=== PATIENT | female | born 1970 | race Asian ===

== ENCOUNTER 2023-01-21 12:38 | Emergency (ER) | payer OTHER ==
[~2023-01-21] VITALS: Ht 157.5 cm; Wt 64.4 kg
[2023-01-21 12:44] VITALS: BP 160/100
[2023-01-21 14:43] LABS: BASOPHILS % (AUTO) 0.8 % (0.0-2.0); EOSINOPHILS % (AUTO) 0.2 % (0.0-4.0); HEMATOCRIT 44.9 % (36-48); HEMOGLOBIN 15.2 g/dL (12.0-16.0); LYMPHOCYTES # (AUTO) 1.3 K/uL (2.5-16.5); LYMPHOCYTES % (AUTO) 22.8 % (20.5-51.1); MEAN CORPUSCULAR HEMOGLOBIN 29 pg (27-31); MEAN CORPUSCULAR HGB CONC 34 g/dL (33-37); MEAN CORPUSCULAR VOLUME 84.2 fL (80-94); MONOCYTES # (AUTO) 0.4 K/uL (0.8-1.0); MONOCYTES % (AUTO) 6.3 % (1.7-9.3); NEUTROPHILS # (AUTO) 4.1 K/uL (1.8-7.7); NEUTROPHILS % (AUTO) 69.9 % (42.2-75.2); PLATELET COUNT (AUTO) 288 K/uL (140-450); RED BLOOD CELL COUNT(AUTO) 5.33 MIL/uL (4.20-5.40); RED CELL DISTRIBUTION WIDTH 12.3 % (11.6-13.7); WHITE BLOOD COUNT (AUTO) 5.9 K/uL (4.8-10.8)
[2023-01-21 15:14] LABS: ANION GAP 15.3 (8-16); CARBON DIOXIDE 24.9 mmol/L (21-32); CREATININE 0.9 mg/dL (0.6-1.3); POTASSIUM 4.2 mmol/L (3.5-5.1); TOTAL BILIRUBIN 0.4 mg/dL (0.0-1.0)
--- NOTE | 2023-01-21 17:00 | NUR ---
AMBULATES TO BR, DENIES ANY FURTHER EPISODES OF PALPITATIONS.
--- NOTE | 2023-01-21 17:20 | NUR ---
RESTING IN BED, WALKS TO BR WITHOUT DISTRESS. DENIES ANY EPISODES OF PALPITATIONS IN THE ED. AWAITING FOR RESULTS
[2023-01-21 18:18] VITALS: BP 158/89
--- NOTE | 2023-01-21 18:21 | NUR ---
Patient discharged with v/s stable. Written and verbal after care instructions given and explained. Patient verbalized understanding. Ambulatory with steady gait. All questions addressed prior to discharge. Advised to follow up with PMD.
== END 2023-01-21 18:18 | disposition home or self-care (01) ==
LOC: MED 12:38
DX: R00.2 Palpitations (principal); R07.2 Precordial pain
CPT/HCPCS: 36415; 71045; 80053; 83880; 84484; 85025; 93005; 99285; Q0092